=== PATIENT | male | born 1980 | race Two or more races ===

== ENCOUNTER 2025-07-16 15:54 | Inpatient (IN) | payer OTHER ==
[~2025-07-16] VITALS: Ht 165.1 cm; Wt 61.2 kg
[2025-07-16] MEDS: MAGNESIUM SULFATE/D5W 100 ML IV SCH (10:55)
[2025-07-16 18:19] LABS: WHITE BLOOD COUNT (AUTO) 2.6 K/uL (3.6-10.2)
[2025-07-16 18:21] LABS: CREATININE 0.6 mg/dL (0.6-1.3); RED BLOOD CELL COUNT(AUTO) 3.24 MIL/uL (4.06-5.63); RED CELL DISTRIBUTION WIDTH 15.9 % (12.1-16.2); SODIUM SERUM 138 mmol/L (136-145); UREA NITROGEN, BLOOD 7 mg/dL (7-18)
[2025-07-16 18:25] LABS: PLATELET COUNT (AUTO) 46 K/uL (152-348)
[2025-07-16 18:27] LABS: ASPARTATE AMINOTRANSFERASE 94 U/L (15-37); TOTAL PROTEIN, SERUM 8.9 g/dL (6.4-8.2)
[2025-07-16] MEDS ORDERED: POTASSIUM BICARBONATE/CIT AC 25 MEQ TABLET.EFF ONE (18:55)
[2025-07-16] MEDS: POTASSIUM BICARBONATE/CIT AC 25 MEQ TABLET.EFF PO ONE (18:59)
[2025-07-16 19:00] LABS: BAND % (MANUAL) 1 % (0-10); LYMPHOCYTES % (MANUAL) 12 % (20-40); MONOCYTES % (MANUAL) 15 % (2-10); NEUTROPHILS % (MANUAL) 72 % (42-75); PLATELET ESTIMATE DECREASED
[2025-07-16] MEDS ORDERED: MAGNESIUM HYDROXIDE 30 ML LIQUID UDC PO PRN (20:15)
[2025-07-16] MEDS ORDERED: ONDANSETRON 4 MG/2 ML VIAL IV PRN (20:15)
[2025-07-16 21:04] VITALS: BP 138/80
[2025-07-16 22:00] VITALS: BP 147/80; TEMP 99.6; O2SAT 96
[2025-07-16] MEDS: ACETAMINOPHEN 325 MG TABLET PO PRN (22:18)
[2025-07-16 23:11] LABS: *BILIRUBIN,URIN NEGATIVE (NEGATIVE); *BLOOD, URINE NEGATIVE (NEGATIVE); *CLARITY,URINE CLEAR (CLEAR); *COLOR,URINE YELLOW (YELLOW); *KETONES,URINE NEGATIVE (NEGATIVE); *PROTEIN,URINE NEGATIVE (NEGATIVE); *UROBILINOGEN,URINE 8.0 E.U./dl (NORMAL); LEUKOCYTE ESTERASE ,URINE NEGATIVE (NEGATIVE); NITRITE, URINE NEGATIVE (NEGATIVE); UGLUCOSE NEGATIVE (NEGATIVE)
[2025-07-16 23:29] LABS: SQUAMOUS EPITHELIAL CELL,UR MODERATE /HPF (NONE SEEN)
[2025-07-16 23:59] VITALS: BP 143/71; TEMP 99; O2SAT 96
[2025-07-17] VITALS (11 sets, daily range): BP systolic 112–138; BP diastolic 60–82; TEMP 97.5–99.5; O2SAT 97–98
[2025-07-17] MEDS: PANTOPRAZOLE SODIUM 40 MG TABLET.DR PO SCH (06:22)
[2025-07-17 07:17] LABS: RED BLOOD CELL COUNT(AUTO) 3.21 MIL/uL (4.06-5.63); RED CELL DISTRIBUTION WIDTH 15.9 % (12.1-16.2); WHITE BLOOD COUNT (AUTO) 2.0 K/uL (3.6-10.2)
[2025-07-17 07:23] LABS: ASPARTATE AMINOTRANSFERASE 81 U/L (15-37); CREATININE 0.5 mg/dL (0.6-1.3); SODIUM SERUM 136 mmol/L (136-145); TOTAL PROTEIN, SERUM 8.5 g/dL (6.4-8.2); UREA NITROGEN, BLOOD 7 mg/dL (7-18)
[2025-07-17 07:33] LABS: PLATELET COUNT (AUTO) 43 K/uL (152-348)
[2025-07-17] MEDS: POTASSIUM CHLORIDE 10 MEQ TAB.PRT.SR PO SCH (10:02)
[2025-07-17] MEDS: LACTULOSE 20 G/30 ML LIQUID UDC PO SCH (10:02)
[2025-07-17 15:02] LABS: BAND % (MANUAL) 5 % (0-10); EOSINOPHILS % (MANUAL) 2 % (0-8); LYMPHOCYTES % (MANUAL) 22 % (20-40); MONOCYTES % (MANUAL) 20 % (2-10); NEUTROPHILS % (MANUAL) 51 % (42-75); PLATELET ESTIMATE MARKED DECREASED
[2025-07-18 00:43] VITALS: BP 124/76; TEMP 98.7; O2SAT 98
[2025-07-18 04:30] VITALS: BP 134/66; TEMP 98.3; O2SAT 97
[2025-07-18 07:08] LABS: PLATELET COUNT (AUTO) 67 K/uL (152-348); RED BLOOD CELL COUNT(AUTO) 3.58 MIL/uL (4.06-5.63); RED CELL DISTRIBUTION WIDTH 15.8 % (12.1-16.2); WHITE BLOOD COUNT (AUTO) 3.4 K/uL (3.6-10.2)
[2025-07-18 07:22] VITALS: BP 143/94; TEMP 97.6; O2SAT 100
[2025-07-18 07:28] LABS: CREATININE 0.7 mg/dL (0.6-1.3); SODIUM SERUM 136.0 mmol/L (136-145); UREA NITROGEN, BLOOD 8.0 mg/dL (7-18)
[2025-07-18 08:27] LABS: MONOCYTES % (MANUAL) 20 % (2-10); NEUTROPHILS % (MANUAL) 32 % (42-75)
[2025-07-18 08:29] LABS: EOSINOPHILS % (MANUAL) 3 % (0-8); LYMPHOCYTES % (MANUAL) 45 % (20-40); PLATELET ESTIMATE DECREASED
[2025-07-18 09:14] LABS: ASPARTATE AMINOTRANSFERASE 83.0 U/L (15-37); TOTAL PROTEIN, SERUM 8.9 g/dL (6.4-8.2)
[2025-07-18] MEDS ORDERED: LEVE500T9 PO ×3 (10:18→14:42)
[2025-07-18] MEDS ORDERED: LACT10SO68 PO (10:18)
[2025-07-18] MEDS ORDERED: LACT10SO7 PO ×2 (10:19→14:42)
[2025-07-18] MEDS: POTASSIUM CHLORIDE 20 MEQ TAB.PRT.SR PO ONE (10:58)
[2025-07-18 13:00] VITALS: BP 147/94; TEMP 98.6; O2SAT 98
== END 2025-07-18 14:15 | DRG 101 ==
LOC: ER 15:54 → TELE3 21:06 → MEDSURG3 07-18 07:20
PROVIDERS: ADMIT Nurse Practitioner Family; ATTEND Nurse Practitioner Family
PROC: 30233R1 Transfusion of Nonautologous Platelets into Peripheral Vein, Percutaneous Approach (ICD-10-PCS; principal; 2025-07-17)
DX: G40.909 Epilepsy, unspecified, not intractable, without status epilepticus (principal); E72.20 Disorder of urea cycle metabolism, unspecified; D61.818 Other pancytopenia; E44.1 Mild protein-calorie malnutrition; K70.30 Alcoholic cirrhosis of liver without ascites; E88.09 Other disorders of plasma-protein metabolism, not elsewhere classified; F10.21 Alcohol dependence, in remission; E83.42 Hypomagnesemia; E87.6 Hypokalemia; Z91.199 Patient's noncompliance with other medical treatment and regimen due to unspecified reason; R73.9 Hyperglycemia, unspecified; Z87.820 Personal history of traumatic brain injury; R41.841 Cognitive communication deficit
CPT/HCPCS: 36415; 70030-TC; 70450; 83605; 83735; 84100; 84443; 86900; 86901; 87086; A4606; A4663; G0378; J1953; P9035